=== PATIENT | female | born 1955 | race Two or more races ===

== ENCOUNTER 2016-11-11 16:06 | Emergency (ER) ==
[2016-11-11 16:17] VITALS: BP 137/83; TEMP 102.4; BMI 29.9
[2016-11-11] MEDS ORDERED: TYLENOL PO STA (16:37)
[2016-11-11 17:00] LABS: BASOPHILS % (AUTO) 0.4 % (0.0-3.0); EOSINOPHILS # (AUTO) 0.4 K/ul (0.0-0.7); EOSINOPHILS % (AUTO) 5.1 % (0.0-7.0); HEMATOCRIT 38.6 % (37.0-47.0); HEMOGLOBIN 12.6 g/dl (12.0-16.0); IMMATURE GRANULOCYTE % (AUTO) 0.4 % (0.0-5.0); LYMPHOCYTES # (AUTO) 0.6 K/uL (0.60-3.4); MEAN CORPUSCULAR HEMOGLOBIN 28.4 pg (27.0-31.0); MEAN CORPUSCULAR HGB CONC 32.6 (31.8-35.4); MEAN CORPUSCULAR VOLUME 87.1 fl (81.0-99.0); MONOCYTES # (AUTO) 0.6 K/uL (0.4-2.0); MONOCYTES % (AUTO) 7.6 (0-10); NEUTROPHILS # (AUTO) 5.9 K/ul (2.0-6.9); NEUTROPHILS % (AUTO) 78.5; PLATELET COUNT 299 10^3/uL (140-440); RED BLOOD COUNT 4.43 10^6/ul (4.20-5.40); WHITE BLOOD COUNT 7.48 K/ul (4.6-10.2)
[2016-11-11 17:17] LABS: FLU INTERNAL QC INTERNAL QC VALID; RAPID FLU A POSITIVE (NEGATIVE); RAPID FLU B NEGATIVE (NEGATIVE)
[2016-11-11 17:18] LABS: ANION GAP 13.4; BILIRUBIN,TOTAL 0.5 mg/dL (0.00-1.20); CALCIUM 9.5 mg/dL (8.2-10.2); CREATININE 0.8 mg/dL (0.60-1.30); POTASSIUM 4.4 mmol/L (3.5-5.10)
[2016-11-11] MEDS ORDERED: SODIUM CHLORIDE 1,000 ML IV STA (17:29)
[2016-11-11] MEDS ORDERED: ZITHROMAX PO STA (17:29)
[2016-11-11] MEDS ORDERED: ROCEPHIN 1 GM in SODIUM CHLORIDE 50 ML IV STA (17:30)
--- NOTE | 2016-11-11 17:33 | ED.PDOC ---
General ED Provider: Dr. BARB LANE Chief Complaint: Cough Stated Complaint: cough, chills flu like symptoms Time Seen by Physician: 16:12 (family member in the emrgency room last night with same complaint) Mode of Arrival: Walk-In Information Source: Patient, Family Exam Limitations: No limitations Primary Care Provider: YENI SAWANT Nursing and Triage Documentation Reviewed and Agree: Yes (returning from [facility] ) Respiratory Complaint Exam - Respiratory Complaint/Exam Onset/Duration: today Symptoms Are: Still present Initial Severity: Moderate Current Severity: Moderate Location: Nose, Throat, Chest Character: Reports: Non-productive cough Aggravating: Reports: None Alleviating: Reports: None Associated Signs and Symptoms: Reports: Fever, Chills, Sore throat Related History: Reports: Similar episode History of Healthcare-Acquired Pneumonia: No Related Surgical History: Reports: None Pulmonary Embolism Risk Factors: None Cardiac Risk Factors: Reports: None Pseudomonas Risk Factors: Reports: None Tuberculosis Risk Factors: Reports: None Status Asthmaticus Risk Factors: Reports: None Home Oxygen Use: No Recent Stress Test: No Recent Echo/LV Function: No Current Antibiotic Use: No Current Asthma Medication Use: No Respiratory Distress: None Inadequate Respiratory Effort: No Dysphagia Present: No Stridor Present: No JVD Present: No Accessory Muscle Use: No Retractions: Not Present Diminished Breath Sounds: No Sinus Tenderness: None Grunting Respirations: No Kussmaul Respirations: No Differential Diagnoses: Pneumonia, Bronchitis Review of Systems - Review Of Systems Constitutional: Reports: Chills, Fever, Malaise, Weakness, Loss of appetite Eyes: Reports: No symptoms Ears, Nose, Mouth, Throat: Reports: Throat pain Respiratory: Reports: Cough Cardiac: Reports: No symptoms GI: Reports: No symptoms : Reports: No symptoms Musculoskeletal: Reports: No symptoms Skin: Reports: No symptoms Neurological: Reports: No symptoms Endocrine: Reports: No symptoms Hematologic/Lymphatic: Reports: No symptoms All Other Systems: Reviewed and Negative Past Medical History - Past Medical History Previously Healthy: Yes Endocrine: Reports: None Cardiovascular: Reports: None Respiratory: Reports: None Hematological: Reports: None Gastrointestinal: Reports: None Genitourinary: Reports: None Neuro/Psych: Reports: None Musculoskeletal: Reports: None Cancer: Reports: None Last Menstrual Period: NONE - Surgical History General Surgical History: Reports: Unknown - Family History Family History: Reports: Unknown - Social History Smoking Status: Never smoker Substance Use: No Alcohol Screening: None Physical Exam - Physical Exam Appearance: Well-appearing, No pain distress, Well-nourished Eyes: LAILA, EOMI, Conjunctiva clear ENT: Ears normal, Nose normal, Oropharynx normal Respiratory: Airway patent, Breath sounds clear, Breath sounds equal, Respirations nonlabored Cardiovascular: RRR, Pulses normal, No rub, No murmur GI/: Soft, Nontender, No masses, Bowel sounds normal, No Organomegaly Musculoskeletal: Normal strength, ROM intact, No edema, No calf tenderness Skin: Warm, Dry, Normal color Neurological: Sensation intact, Motor intact, Reflexes intact, Cranial nerves intact, Alert, Oriented Psychiatric: Affect appropriate, Mood appropriate Critical Care Note - Critical Care Note Total Time (mins): 0 Course - Course Hematology/Chemistry: 11/11/16 16:55 11/11/16 16:55 Orders, Labs, Meds: Lab Review 11/11/16 16:55 WBC 7.48 RBC 4.43 Hgb 12.6 Hct 38.6 MCV 87.1 MCH 28.4 MCHC 32.6 RDW Coeff of Crys 14.6 Plt Count 299 Immature Gran % (Auto) 0.4 Neut % (Auto) 78.5 Lymph % (Auto) 8.0 L [place] % (Auto) 7.6 Eos % (Auto) 5.1 Baso % (Auto) 0.4 Immature Gran # (Auto) 0.0 Neut # 5.9 Lymph # 0.6 [place] # 0.6 Eos # 0.4 Baso # 0.0 Sodium 138 Potassium 4.4 Chloride 103 Carbon Dioxide 26 Anion Gap 13.4 BUN 12 Creatinine 0.80 Estimated GFR (MDRD) 74.00 BUN/Creatinine Ratio 15.00 Glucose 99 Lactic Acid 7.5 Calcium 9.5 Total Bilirubin 0.50 AST 29 ALT 30 Alkaline Phosphatase 104 H Total Protein 8.0 Albumin 4.0 Globulin 4.0 Albumin/Globulin Ratio 1.00 Influenza A (Rapid) Positive H Influenza B (Rapid) Negative Orders Category Date Time Status BLOOD CULTURE Stat LAB 11/11/16 16:55 Received CBC W/ AUTO DIFF Stat LAB 11/11/16 16:55 Completed COMPREHENSIVE METABOLIC PANEL Stat LAB 11/11/16 16:55 Completed LACTIC ACID Stat LAB 11/11/16 16:55 Completed MOLECULAR GROUP A STREP Stat LAB 11/11/16 16:55 Results RAPID FLU A/B Stat LAB 11/11/16 16:55 Completed STREP SCREEN Stat LAB 11/11/16 16:55 Results URINALYSIS C & S IF INDICATED Stat LAB 11/11/16 16:36 Uncollected Acetaminophen [Tylenol] MEDS 11/11/16 16:37 Discontinued 650 mg PO ONCE STA Azithromycin [Zithromax] MEDS 11/11/16 17:29 Discontinued 500 mg PO ONCE STA Ceftriaxone Sodium [Rocephin] 1 gm MEDS 11/11/16 17:30 Active 0.9 % Sodium Chloride [Sodium Chloride] 50 ml IV ONCE Sodium Chloride 0.9% [Sodium Chloride] 1,000 ml MEDS 11/11/16 17:29 Active IV BOLUS CHEST, 2 VIEWS PA & LAT Stat RADS 11/11/16 16:36 Taken Medications Generic Name Dose Route Start Last Admin Trade Name Freq PRN Reason Stop Dose Admin Sodium Chloride 1,000 mls @ 1,000 mls/hr 11/11/16 17:29 Sodium Chloride IV 11/11/16 18:28 BOLUS STA Ceftriaxone Sodium 1 gm/ 50 mls @ 75 mls/hr 11/11/16 17:30 Sodium Chloride IV 11/11/16 18:09 ONCE STA Discontinued Medications Generic Name Dose Route Start Last Admin Trade Name Freq PRN Reason Stop Dose Admin Acetaminophen 650 mg 11/11/16 16:37 11/11/16 16:42 Tylenol PO 11/11/16 16:38 650 mg ONCE STA Administration Azithromycin 500 mg 11/11/16 17:29 Zithromax PO 11/11/16 17:30 ONCE STA Vital Signs: Temp Pulse Resp BP Pulse Ox 11/11/16 16:07 102.4 F H 103 H 20 137/83 98 Departure - Departure Time of Disposition: 17:35 Disposition: HOME SELF-CARE Discharge Problem: Cough, Influenza Instructions: Influenza (ED) Condition: Good Pt referred to PMD for follow-up: No Additional Instructions: Please call your Family Physician as soon as possible to schedule a follow-up appointment. Allergies/Adverse Reactions: Allergies No Known Allergies Allergy (Verified 11/11/16 16:12) Home Medications: Ambulatory Orders 1 [No Reported Medications] 11/11/16 Disposition Discussed With: Patient, Family
[2016-11-11] MEDS ORDERED: ROCEPHIN ONE (17:47)
--- NOTE | 2016-11-12 00:39 | DI ---
EXAM: Chest, two views, 11/11/2016 HISTORY: Cough COMPARISON: None. FINDINGS / IMPRESSION: Cardiomediastinal contours appear within normal limits. Bibasilar interstit ial prominence likely due to atelectasis and/or pneumonitis. There is no focal pulmonary consolidat ion, effusion or pneumothorax.
== END 2016-11-11 19:17 | disposition home or self-care (01) ==
LOC: ED 16:06
DX: J09.X2 Influenza due to identified novel influenza A virus with other respiratory manifestations (principal)
CPT/HCPCS: 36415; 80053; 83605; 85025; 87040; 87651; 87804; 87880; 96361; 96365; 99283

== ENCOUNTER 2016-11-13 17:27 | Emergency (ER) ==
[2016-11-13 17:28] VITALS: BMI 29.9
[2016-11-13 17:33] VITALS: BP 112/74; TEMP 96.8
--- NOTE | 2016-11-13 17:57 | ED.PDOC ---
General ED Provider: Dr. AURA CONTRERAS JR Chief Complaint: Respiratory Complaint Stated Complaint: Intermittent fever, no energy. Dx with flu 2 days ago. Seen this ER. [ End ]2 DAYS 96.8 75 20 97% 112/74 08/26. 11/11/16 INFLUENZA A POSITIVE Time Seen by Physician: 17:57 Mode of Arrival: Walk-In Information Source: Patient Exam Limitations: Language barrier Primary Care Provider: YENI SAWANT Nursing and Triage Documentation Reviewed and Agree: No Review of Systems - Review Of Systems Constitutional: Reports: Chills, Fever, Malaise Eyes: Reports: No symptoms Ears, Nose, Mouth, Throat: Reports: No symptoms Respiratory: Reports: Short of air. Denies: Cough Cardiac: Reports: No symptoms GI: Reports: No symptoms : Reports: No symptoms Musculoskeletal: Reports: Muscle pain Skin: Reports: No symptoms Neurological: Reports: No symptoms Endocrine: Reports: No symptoms Hematologic/Lymphatic: Reports: No symptoms All Other Systems: Other Past Medical History - Past Medical History Previously Healthy: Yes Endocrine: Reports: None Cardiovascular: Reports: None Respiratory: Reports: None Hematological: Reports: None Gastrointestinal: Reports: None Genitourinary: Reports: None Neuro/Psych: Reports: None Musculoskeletal: Reports: None Cancer: Reports: None Last Menstrual Period: unknown - Surgical History General Surgical History: Reports: Unknown - Family History Family History: Reports: Unknown - Social History Smoking Status: Never smoker Hx Substance Use: No Alcohol Screening: None Physical Exam - Physical Exam Appearance: Ill-appearing Ill-appearing: Mild Pain Distress: Mild Eyes: LAILA, EOMI, Conjunctiva clear ENT: Ears normal, Nose normal, Oropharynx normal Neck: Supple Respiratory: Airway patent, Respirations nonlabored, Rhonchi Cardiovascular: RRR, Pulses normal, No rub, No murmur GI/: Soft, Nontender, No masses, Bowel sounds normal, No Organomegaly Musculoskeletal: Normal strength, ROM intact, No edema, No calf tenderness Skin: Warm, Dry, Normal color Neurological: Sensation intact, Motor intact, Reflexes intact, Cranial nerves intact, Alert, Oriented Psychiatric: Affect appropriate, Mood appropriate Critical Care Note - Critical Care Note Total Time (mins): 0 Course - Course Hematology/Chemistry: 11/13/16 18:15 Orders, Labs, Meds: Lab Review 11/13/16 18:15 WBC 4.70 RBC 4.52 Hgb 12.9 Hct 39.4 MCV 87.2 MCH 28.5 MCHC 32.7 RDW Coeff of Crys 14.8 Plt Count 314 Immature Gran % (Auto) 0.2 Neut % (Auto) 46.1 Lymph % (Auto) 34.0 [place] % (Auto) 11.9 H Eos % (Auto) 7.2 H Baso % (Auto) 0.6 Immature Gran # (Auto) 0.0 Neut # 2.2 Lymph # 1.6 [place] # 0.6 Eos # 0.3 Baso # 0.0 Orders Category Date Time Status CBC W/ AUTO DIFF Stat LAB 11/13/16 18:15 Completed COMPREHENSIVE METABOLIC PANEL Stat LAB 11/13/16 18:15 Completed CHEST, 2 VIEWS PA & LAT Stat RADS 11/13/16 18:03 Ordered Vital Signs: Temp Pulse Resp BP Pulse Ox 11/13/16 17:28 96.8 F L 75 20 112/74 97 Departure - Departure Time of Disposition: 18:42 Disposition: HOME SELF-CARE Discharge Problem: Influenza Instructions: Influenza (ED) Condition: Good Pt referred to PMD for follow-up: Yes Additional Instructions: REST AT HOME FOR FOPUR DAYS DRINK PLENTY OF FLUIDS EXPECT 3 TO FOUR DAYS OF SYMPTOMS TYLENOL AND MOTRIN FOR FEVER OR PAIN RETURN IF HIGH FEVER NEW COUGH OR WORSENING Allergies/Adverse Reactions: Allergies No Known Allergies Allergy (Verified 11/13/16 17:33) Home Medications: Ambulatory Orders 1 [No Reported Medications] 11/11/16
[2016-11-13 18:30] LABS: BASOPHILS % (AUTO) 0.6 % (0.0-3.0); EOSINOPHILS # (AUTO) 0.3 K/ul (0.0-0.7); EOSINOPHILS % (AUTO) 7.2 % (0.0-7.0); HEMATOCRIT 39.4 % (37.0-47.0); HEMOGLOBIN 12.9 g/dl (12.0-16.0); IMMATURE GRANULOCYTE % (AUTO) 0.2 % (0.0-5.0); LYMPHOCYTES # (AUTO) 1.6 K/uL (0.60-3.4); MEAN CORPUSCULAR HEMOGLOBIN 28.5 pg (27.0-31.0); MEAN CORPUSCULAR HGB CONC 32.7 (31.8-35.4); MEAN CORPUSCULAR VOLUME 87.2 fl (81.0-99.0); MONOCYTES # (AUTO) 0.6 K/uL (0.4-2.0); MONOCYTES % (AUTO) 11.9 (0-10); NEUTROPHILS # (AUTO) 2.2 K/ul (2.0-6.9); NEUTROPHILS % (AUTO) 46.1; PLATELET COUNT 314 10^3/uL (140-440); RED BLOOD COUNT 4.52 10^6/ul (4.20-5.40)
[2016-11-13 18:50] LABS: ALBUMIN 4.1 g/dL (3.4-5.0); ANION GAP 14.7; BILIRUBIN,TOTAL 0.26 mg/dL (0.00-1.20); BUN/CREATININE RATIO 18.3; CALCIUM 9.6 mg/dL (8.2-10.2); CREATININE 0.71 mg/dL (0.60-1.30); POTASSIUM 4.7 mmol/L (3.5-5.10); TOTAL PROTEIN 8.2 g/dL (6.4-8.2)
[2016-11-13 20:04] LABS: CREATINE KINASE 161 U/L
[2016-11-13 20:18] LABS: CREATINE KINASE MB 2.6 ng/ml (0.0-3.6)
--- NOTE | 2016-11-14 07:21 | DI ---
Examination: Two radiographic images of the chest. Comparison: 11/11/2016. Reason for study: Fever and cough. FINDINGS: No pneumothorax, pleural effusion, or focal consolidation. The cardiac silhouette is not enlarged. The previously described basilar interstitial prominence is somewhat improved on today's examination. Impression: 1. Improving basilar interstitial prominence. 2. Otherwise no acute cardiopulmonary process.
== END 2016-11-13 19:25 | disposition home or self-care (01) ==
LOC: ED 17:27
DX: J09.X2 Influenza due to identified novel influenza A virus with other respiratory manifestations (principal)
CPT/HCPCS: 36415; 80053; 82550; 82553; 84484; 85025; 99282

== ENCOUNTER 2018-04-01 15:11 | Outpatient (CLI) | END 2018-04-01 15:12 | disposition home or self-care (01) | LOC: LAB 15:11 | PROVIDERS: ATTEND Internal Medicine | DX: E78.5 Hyperlipidemia, unspecified (principal); E66.9 Obesity, unspecified | CPT/HCPCS: 36415; 80053; 80061; 81001; 82607; 83036; 84439; 84443; 85025 ==

== ENCOUNTER 2018-06-16 15:42 | Outpatient (CLI) | END 2018-06-16 15:43 | disposition home or self-care (01) | LOC: LAB 15:42 | PROVIDERS: ATTEND Internal Medicine | DX: E78.5 Hyperlipidemia, unspecified (principal); E66.9 Obesity, unspecified | CPT/HCPCS: 36415; 80053; 80061; 83036; 84443; 85025 ==

== ENCOUNTER 2018-06-21 14:13 | Outpatient (CLI) | END 2018-06-21 14:14 | disposition home or self-care (01) | LOC: RAD 14:13 | PROVIDERS: ATTEND Internal Medicine | DX: Z12.31 Encounter for screening mammogram for malignant neoplasm of breast (principal) ==

== ENCOUNTER 2018-08-27 12:39 | Outpatient (CLI) | END 2018-08-27 12:40 | disposition home or self-care (01) | LOC: LAB 12:39 | PROVIDERS: ATTEND Internal Medicine | DX: E78.5 Hyperlipidemia, unspecified (principal); R53.1 Weakness | CPT/HCPCS: 36415; 80053; 80061; 83036; 84439; 84443; 85025; 87502 ==

== ENCOUNTER 2019-02-01 14:13 | Outpatient (CLI) | END 2019-02-01 14:14 | disposition home or self-care (01) | LOC: LAB 14:13 | PROVIDERS: ATTEND Internal Medicine | DX: E78.5 Hyperlipidemia, unspecified (principal); E66.9 Obesity, unspecified | CPT/HCPCS: 36415; 80053; 80061; 83036; 84443; 85025 ==

== ENCOUNTER 2019-04-02 19:08 | Emergency (ER) ==
[2019-04-02 19:17] VITALS: BP 116/76; TEMP 99.2; BMI 31.2
[2019-04-02] MEDS ORDERED: PHENERGAN 25 MG/ML VIAL IM STA (19:21)
[2019-04-02] MEDS ORDERED: MORPHINE 2 MG/ML SYRINGE IM STA (19:21)
[2019-04-02] MEDS ORDERED: SILVADENE CREAM TP STA ×2 (19:22→19:30)
[2019-04-02] MEDS ORDERED: TENIVAC IM ONE ×2 (19:22→19:45)
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
== END 2019-04-02 20:25 | disposition home or self-care (01) ==
LOC: ED 19:08
DX: T20.20XA Burn of second degree of head, face, and neck, unspecified site, initial encounter (principal); T21.20XA Burn of second degree of trunk, unspecified site, initial encounter; T22.20XA Burn of second degree of shoulder and upper limb, except wrist and hand, unspecified site, initial encounter; T31.20 Burns involving 20-29% of body surface with 0% to 9% third degree burns; X10.2XXA Contact with fats and cooking oils, initial encounter
CPT/HCPCS: 90471; 90714; 96372; 99282